=== PATIENT | male | born 1950 | race Caucasian/White ===

== ENCOUNTER → 2017-02-27 | Outpatient (CLI) | payer MEDICARE ==
--- NOTE | 2017-02-27 09:04 | KCIC ---
MRI of the lumbar spine without contrast 02/27/2017 CLINICAL HISTORY: Chronic low back pain for years which radiates down both legs, left greater than right. TECHNIQUE: Unenhanced T1-weighted and T2-weighted sagittal and axial and inversion recovery sagittal images of the lumbar spine were obtained. FINDINGS: Minimal S-shaped curvature of the thoracolumbar spine is seen. Degenerative signal changes are seen involving all of the disks of the lumbar spine. Degenerative signal changes are seen within the marrow surrounding these discs. Loss of height of the L5-S1 disc is noted. The conus medullaris is normal in morphology, position, and signal characteristics. A 2.6 cm rounded high signal intensity lesion is seen involving the lower pole of the left kidney on the T2-weighted images. This likely represents a cyst. The L1-2 disc space is within normal limits. At the L2-3 disc space there is a minimal generalized disc bulge. Degenerative changes are seen involving the facet joints bilaterally. These findings do not result in significant central spinal canal or neural foraminal stenosis. At the L3-4 disc space there is a mild generalized disc bulge. Superimposed on this disc bulge is a right paracentral focal disc protrusion. This measures 3 mm in AP diameter. Degenerative changes are seen involving the facet joints bilaterally. There is mild to moderate ligamentum flavum hypertrophy bilaterally. These findings when combine result in mild central spinal canal stenosis. No neural foraminal stenosis is seen. At the L4-5 disc space there is a mild generalized disc bulge. Degenerative changes are seen involving the facet joints bilaterally. There is moderate ligamentum hypertrophy bilaterally. There is a synovial cyst seen which projects anteriorly and medially from the right facet joint. This measures 9 mm in greatest diameter. These findings when combined result in mild to moderate right greater than left central spinal canal stenosis. No neural foraminal stenosis is seen. At the L5-S1 disc space there is a mild to moderate generalized disc bulge. This is eccentric to the left. Degenerative changes are seen involving the facet joints bilaterally. There is mild ligamentum flavum hypertrophy. These findings when combined do not result in significant central spinal canal stenosis. Moderate left neural foraminal stenosis is seen. The right neural foramen is patent. IMPRESSION: The changes of degenerative disc disease are seen throughout the lumbar spine. These findings result in mild central spinal canal stenosis at L3-4 and mild to moderate right greater than left central spinal canal stenosis at L4-5. Moderate left neural foraminal stenosis is seen at L5-S1. Electronically signed by: Corky Preciado MD (02/27/2017 9:00 AM) [email or web address]
== END | disposition home or self-care (01) ==
LOC: KCIC MRI 07:53
PROVIDERS: ATTEND Family Medicine
DX: M51.36 Other intervertebral disc degeneration, lumbar region (principal); M48.07 Spinal stenosis, lumbosacral region; M99.53 Intervertebral disc stenosis of neural canal of lumbar region
CPT/HCPCS: 72148

== ENCOUNTER → 2017-03-28 | Outpatient (CLI) | payer MEDICARE ==
--- NOTE | 2017-03-28 12:52 | RAD ---
Indication chronic low back pain. A lateral digital view of the lumbar spine was obtained as well as lateral flexion and extension views. There are some facet degenerative changes. There is mild disc space narrowing at L5-S1. Vertebral height and alignment are well maintained. There is very minimal anterolisthesis of L4 relative to L5 with flexion
== END | disposition home or self-care (01) ==
LOC: ONC 11:31
PROVIDERS: ATTEND Neurological Surgery
DX: M43.16 Spondylolisthesis, lumbar region (principal); G89.29 Other chronic pain
CPT/HCPCS: 72100

== ENCOUNTER → 2017-04-06 | Outpatient (CLI) | payer MEDICARE ==
[~2017-04-06] MED LIST: ALPR1TAB6 PO; ASPI-482 PO; CARV12.52 PO; CITA40TA5 PO; CRESTOR20 MG PO; DAPA10TA PO; DOCU-109 PO; FENO145T2 PO; HYDR-2762 PO; LISI1TAB7 PO; METF-620 PO; METH750T2 PO; SITA100T PO; TADA5TAB PO
[2017-04-06 11:41] LABS: BASO % 1 % (0-3); EOS % 2 % (0-3); HEMATOCRIT 44.3 % (39.0-53.0); HEMOGLOBIN 15.4 g/dL (13.0-17.5); LYMPH # 1.6 x10^3/uL (1.0-4.8); LYMPH % 32 % (24-48); MEAN CORPUSCULAR HEMOGLOBIN 31 pg (25-35); MEAN CORPUSCULAR HGB CONC 35 g/dL (31-37); MEAN CORPUSCULAR VOLUME 89 fL (79-100); MONO % 10 % (0-9); NEUT % 56 % (31-73); PLATELET COUNT 213 x10^3/uL (140-400); RED BLOOD COUNT 4.95 x10^6/uL (4.30-5.70); RED CELL DISTRIBUTION WIDTH 13.4 % (11.5-14.5); WHITE BLOOD COUNT 5.1 x10^3/uL (4.0-11.0)
[2017-04-06 13:15] LABS: ALBUMIN 3.9 g/dL (3.4-5.0); ALBUMIN/GLOBULIN RATIO 1.3 (1.0-1.7); CALCIUM 9.1 mg/dL (8.5-10.1); CREATININE 0.7 mg/dL (0.7-1.3); GFR 112.8; POTASSIUM 3.9 mmol/L (3.5-5.1); TOTAL BILIRUBIN 0.6 mg/dL (0.2-1.0)
== END | disposition home or self-care (01) ==
LOC: SURGPAT 10:24
PROVIDERS: ATTEND Neurological Surgery
DX: M48.06 Spinal stenosis, lumbar region (principal); M54.16 Radiculopathy, lumbar region; M71.38 Other bursal cyst, other site
CPT/HCPCS: 36415; 80053; 83036; 85025; 87641

== ENCOUNTER → 2018-11-08 | Outpatient (CLI) | payer MEDICARE ==
[2017-04-14 11:18] VITALS: BP 142/72
[~2018-11-08] MED LIST changes: +CARV12.511 PO; -CARV12.52 PO; +CARV6.25 PO; -FENO145T2 PO; +FENO145T30 PO; -HYDR-2762 PO; +HYDR-2765 PO; -METF-620 PO; +METF10007 PO; +SIMV10TA PO; +TERB250T11 PO
--- NOTE | 2018-11-08 10:55 | KCIC ---
MRI of the lumbar spine without contrast 11/08/2018 CLINICAL HISTORY: Low back pain which radiates down the left leg. History of previous lumbar spine surgery. TECHNIQUE: Unenhanced T1-weighted and T2-weighted sagittal and axial and inversion recovery sagittal images of the lumbar spine were obtained. FINDINGS: Comparison is made to radiographs of lumbar spine dated 03/28/2017. Additional comparison is made to an MRI of the lumbar spine dated 02/27/2017. Minimal S-shaped curvature of the thoracolumbar spine is seen. Degenerative signal changes are seen involving the L2-3, L3-4, L4-5 and L5-S1 discs. Loss of height of the L5-S1 disc is noted. Degenerative signal changes are seen within the marrow surrounding these discs. The conus medullaris is normal morphology, position, and signal characteristics. High signal intensity rounded lesions are seen involving the lower pole of the left kidney on the T2-weighted images which measure 6 mm 3.1 cm in size. They may represent cysts. At the L1-2 and L2-3 disc spaces there are minimal to mild generalized disc bulges. Degenerative changes are seen involving the facet joints bilaterally. There is mild ligamentum flavum hypertrophy bilaterally. These findings when combined do not result in significant central spinal canal or neural foraminal stenosis. At the L3-4 disc space there is a mild generalized disc bulge. Degenerative changes are seen involving the facet joints bilaterally. There are small facet joint effusions bilaterally. There is moderate ligamentum flavum hypertrophy bilaterally. There is prominence of posterior epidural fat. Superimposed on the disc bulge is a right paracentral/lateral focal disc protrusion. This measures 5 mm in AP diameter. These findings when combined result in mild central spinal canal stenosis. No neural foraminal stenosis is seen. At the L4-5 disc space, the patient is post left hemilaminotomy. There is a mild generalized disc bulge. Degenerative changes are seen involving the facet joints bilaterally. Mild right ligamentum flavum hypertrophy is seen. There is a small left facet joint effusion. These findings when combined do not result in significant central spinal canal stenosis. Mild right neural foraminal stenosis is seen. The left neural foramen is patent. At the L5-S1 disc space there is a mild to moderate generalized disc bulge. This is eccentric to the left. Degenerative changes are seen involving the facet joints bilaterally. These findings when combined do not result in significant central spinal canal stenosis. Moderate left neural foraminal stenosis is seen. The right neural foramen is patent. IMPRESSION: 1. Post left hemilaminotomy at L4-5. 2. The changes of degenerative disc disease are seen involving the lumbar spine. These findings result in mild central spinal canal stenosis at L3-4. Mild right neural foraminal stenosis is seen at L4-5. Moderate left neural foraminal stenosis is seen at L5-S1. Electronically signed by: Corky Preciado MD (11/08/2018 10:52 AM) [email or web address]
== END | disposition home or self-care (01) ==
LOC: KCIC MRI 09:14
PROVIDERS: ATTEND Nurse Practitioner
DX: M51.36 Other intervertebral disc degeneration, lumbar region (principal); M48.07 Spinal stenosis, lumbosacral region; M47.817 Spondylosis without myelopathy or radiculopathy, lumbosacral region; M51.27 Other intervertebral disc displacement, lumbosacral region; M25.48 Effusion, other site; N28.89 Other specified disorders of kidney and ureter
CPT/HCPCS: 72148

== ENCOUNTER → 2018-12-05 | Outpatient (CLI) | payer MEDICARE ==
[2017-04-14 11:18] VITALS: BP 142/72
[~2018-12-05] MED LIST changes: +IOHEXOL 180 MG/ML 10 ML VIAL. ONE; +methylPREDNISolone ACETATE 40 MG/ML VIAL. ONE; +methylPREDNISolone ACETATE 80 MG/ML VIAL. ONE
--- NOTE | 2018-12-06 06:46 | PAIN ---
DATE OF SERVICE: 12/05/2018 CHIEF COMPLAINT: Low back and left lower extremity pain. HISTORY OF PRESENT ILLNESS: This is a 68-year-old male who presents with history of pain since 08/2018 when he fell on some ice while he was walking and fell on his left hip and back. The patient reports that since that time, he has had pain down the left lower extremity, mostly in the posterior gluteus, posterior thigh, lateral thigh, anterior thigh, posterior calf posterior foot into the sole of the foot as well as all the toes with numbness and tingling. The patient reports it is becoming more constant over the past month or so, increasing with intensity, worse with walking, standing, change in positions causes significant fatigability and weakness in the left leg when he is ambulating. The patient reports it awakens him from sleep about 2-3 times a night, does not affect his bowel or bladder control, but does affect his ability to walk significantly. So far, he is not using any assistive devices to ambulate, however. The patient has had chiropractic treatment and some physical therapy in the past. Also, was noted to be status post L4-L5 laminectomy with decompression in 2016 with very good results and no pain since that time until the fall on the ice and it was in his left leg prior when he had a surgery. The patient reports the pain is constant, numbness and tingling, radiating, aching in the low back, shooting in the leg, dull and sharp alternating. The patient rates his disability rating from 0 to 10, 10 being the worst, as an 8 with family and home responsibilities and occupation, 10 with recreation, 6 with social activity, 3 with sexual behavior, 5 with self-care and 6 with life support activities, especially sleeping. The patient did have an MRI scan of lumbar spine showing previous post-hemilaminectomy at L4-L5 with degenerative disk disease and moderate left neural foraminal stenosis at L5-S1 with moderate generalized disk bulge eccentric to the left side. The patient reports no complete loss of function but again significant fatigability and no symptoms on the right side. PAST MEDICAL HISTORY: Significant for hearing loss, type 2 diabetes, hypertension, sleep apnea, arthritis, shingles. PREVIOUS SURGERIES: Include lumbar decompression in 2017 and the left hand surgery in the past. CURRENT MEDICATIONS: Include gabapentin, Tylenol, hydrocodone, all of which decreased the pain to a moderate extent, but not greater than that. Other medications include alprazolam, carvedilol, citalopram, rosuvastatin, Januvia, Farxiga, lisinopril, metformin, fenofibrate, Cialis, Tylenol. ALLERGIES: The patient has no known drug allergies. FAMILY HISTORY: Significant for no major medical problems or conditions he is aware of. SOCIAL HISTORY: The patient does not smoke, use any illegal, illicit or recreational drugs. He is and lives with his spouse, has one child, living at home, lives locally in [place], [place]. REVIEW OF SYSTEMS: Positive for those items mentioned in history of present illness. All systems reviewed and otherwise negative. It is complete, full and well documented on the patient's chart. PHYSICAL EXAMINATION: VITAL SIGNS: The patient's blood pressure is 147/71, pulse 82, respirations 18, temperature is 98.6 degrees Fahrenheit, height is 6 feet, weight is 236 pounds. GENERAL: The patient is awake, alert, oriented, appropriate, very pleasant demeanor. HEENT: Head shows normocephalic, atraumatic. Extraocular movements intact and symmetrical. Oral cavity: Mucous membranes moist and pink. Dentition is intact. NECK: Shows anterior throat supple without palpable lymphadenopathy noted. Swallow reflex is symmetrical. CHEST: Shows normal on inspection. Breath sounds are clear to auscultation bilaterally. HEART: Shows S1, S2 clear. No murmurs auscultated. ABDOMEN: Soft, nontender, nondistended. No palpable organomegaly is noted. No rebound or guarding demonstrated. BACK: Shows spine grossly in the midline, normal appearing cervical lordotic curvature, thoracic kyphotic curvature and lumbar lordotic curvature. Lumbar paraspinous musculature shows symmetrical on inspection, with palpation shows some moderate tenderness diffusely in the middle and lower distribution of paraspinous muscles, but only diffusely. Upper muscles are not tender. The patient shows good rotational motion of lumbar spine, both laterally greater than 10 degrees right and left as well as extension greater than 10 degrees, forward flexion 45 degrees without significant pain reported. No tenderness over the spinous processes, sacrum or sacroiliac regions. EXTREMITIES: The patient's lower extremities show deep tendon reflexes at 1+ in the patellar and tendo calcaneus tendons are equal and symmetrical. Motor exam shows dorsiflexion and extension at approximately 4 on a scale of 5 on the left and 5/5 on the right, quadriceps and hamstring flexion likewise 5/5, right and 4/5, left. Peripheral pulses are 1+ posterior tibia. No peripheral edema is noted. Straight leg raise is positive on the left at about 35 degrees with right side is negative. Gaenslen's and Johny's maneuvers are negative bilaterally. The patient's lower extremities are warm and dry to touch, equal in color and appearance. The patient's skin shows warm and dry, good turgor. No edema, no sores, rashes or bruising throughout. The patient is able to stand, stand on his toes without difficulty or loss of balance, walking with a normal appearing gait for short distance in the office today, not using any assistive devices to ambulate. IMPRESSION: 1. This is the 68-year-old male with approximate 3-month history of pain, low back, left lower extremity in radicular fashion after a fall in August. 2. MRI scan of lumbar spine as noted. 3. Type 2 diabetes. 4. Hypertension. 5. Arthritis. PLAN: Options were discussed with the patient including conservative medical management, physical therapy, interventional techniques and he would like to pursue interventional techniques. We discussed a lumbar epidural steroid injection using description as well as anatomical models to describe the procedure. Risks were then discussed including, but not limited to bleeding, infection, possibility of epidural hematoma and subsequent neurological compromise, dural puncture, headaches, spinal cord and/or nerve damage, side effects of steroid medication and poor results regarding pain control. The patient understands and wished to proceed. The patient will return to clinic in approximately 2 weeks for followup. She was counseled as to return appointment, activity level and side effects to be aware of. DIAGNOSES: Lumbar radiculopathy with lumbar degenerative disk disease and lumbar spinal stenosis. PROCEDURE: Lumbar epidural steroid injection, translaminar approach L5-S1 level using C-arm fluoroscopic guidance under sterile prep and drape using local anesthetic. MEDICATION INJECTED: A total of 120 mg Depo-Medrol plus 10 mL of preservative-free normal saline and 2 mL of Isovue for contrast. CONDITION ON DISCHARGE: Stable. The patient tolerated procedure well, had no complications. CHUCK FRANKLIN MD DR: VICTORIA/jeff JOB#: [id number] / [id number]
== END | disposition home or self-care (01) ==
LOC: PNCL 13:09
PROVIDERS: ATTEND Anesthesiology
DX: M51.16 Intervertebral disc disorders with radiculopathy, lumbar region (principal); M48.061 Spinal stenosis, lumbar region without neurogenic claudication; I10 Essential (primary) hypertension; E11.9 Type 2 diabetes mellitus without complications; M19.90 Unspecified osteoarthritis, unspecified site; H91.90 Unspecified hearing loss, unspecified ear; G47.30 Sleep apnea, unspecified; Z86.19 Personal history of other infectious and parasitic diseases; Z98.890 Other specified postprocedural states; Z79.899 Other long term (current) drug therapy; Z79.84 Long term (current) use of oral hypoglycemic drugs
CPT/HCPCS: 62323; J1030; J1040; Q9965

== ENCOUNTER → 2018-12-19 | Outpatient (CLI) | payer MEDICARE ==
[2017-04-14 11:18] VITALS: BP 142/72
--- NOTE | 2018-12-20 03:10 | PAIN ---
DATE OF SERVICE: 12/19/2018 DIAGNOSIS: Lumbar radiculopathy with lumbar degenerative disk disease and lumbar spinal stenosis with post lumbar laminectomy syndrome. HISTORY OF PRESENT ILLNESS: The patient is a 68-year-old male who returns for followup status post lumbar epidural steroid injection x 1. The patient reports about 20% improvement overall, initially was doing much better, but then the pain began to return in his left leg after about a week. The patient reports it is increasing with standing, walking, changing positions, standing from a sitting position. Reports it is 6 on a scale 10 at its worst over the past week, 4 on average, 2 at its least and is 4 today. The patient reports it is tingling, cramping, radiating and had some spasms in the left calf as well as. There is tightness over the left anterior foot. The patient reports it is better with sitting or lying down, does not awaken him from sleep at night. The patient reports no new motor or sensory deficits. Initially, the first week he increased his distance walking, doing household activity and travelling with greater ease and comfort, but now the pain is returning. PHYSICAL EXAMINATION: VITAL SIGNS: The patient's blood pressure is 154/81, pulse 78, respirations 18, temperature is 98.1 degrees Fahrenheit, height is 6 feet, weighs 234 pounds. GENERAL: The patient is awake, alert, oriented, appropriate, very pleasant demeanor. The patient is accompanied by his spouse. HEENT: Normocephalic, atraumatic. Extraocular movements are intact, symmetrical. Oral cavity: Mucous membranes moist and pink. Dentition is intact. NECK: Shows anterior throat supple without palpable lymphadenopathy noted. Swallow reflex symmetrical. CHEST: Shows normal with inspection. Breath sounds clear to auscultation bilaterally. HEART: Shows S1, S2 clear. No murmurs auscultated. ABDOMEN: Soft, nontender, nondistended. No palpable organomegaly is noted. No rebound or guarding demonstrated. BACK: Shows spine grossly in the midline. Normal-appearing thoracic kyphosis and lumbar lordotic curvature. Lumbar paraspinous muscle shows symmetrical on inspection, Well-healed surgical scar is again noted. Lumbar paraspinous muscles are moderately tender with palpation bilaterally, only in the low lumbar distribution, but without radiation. The patient has good rotational motion of lumbar spine, both laterally as well as extension and flexion without difficulty. EXTREMITIES: Lower extremities show deep tendon reflexes 1+ in the patellar and tendo calcaneus tendons. Motor exam is approximately 4 on a scale of 5 on the left with dorsiflexion and extension, 5/5 on the right. Peripheral pulses are 1+ posterior tibial. No peripheral edema is noted bilaterally. Options were discussed with the patient. The patient's old chart was reviewed as was his current medication regimen updated. Current review of systems updated today as well. We will proceed with a second in the series of lumbar epidural steroid injection today with fluoroscopic guidance. Risks were again discussed including, but not limited to bleeding, infection, possibility of epidural hematoma and subsequent neurological compromise, dural puncture, headaches, spinal cord and/or nerve damage, side effects of steroid medication and poor results regarding pain control. The patient understands and wished to proceed. The patient will return to clinic in approximately 2 weeks for followup, was counseled as to return appointment, activity level and side effects to be aware of. DIAGNOSIS: Lumbar radiculopathy with lumbar degenerative disk disease, lumbar spinal stenosis and post-lumbar laminectomy syndrome. PROCEDURE: Lumbar epidural steroid injection, translaminar approach at L5-S1 level using C-arm fluoroscopic guidance under sterile prep and drape using local anesthetic. MEDICATION INJECTED: A total of 120 mg Depo-Medrol plus 10 mL of preservative-free normal saline and 2 mL of Isovue for contrast. CONDITION AT DISCHARGE: Stable. The patient tolerated the procedure well, had no complications. CHUCK FRANKLIN MD DR: VICTORIA/jeff JOB#: [id number] / [id number]
== END | disposition home or self-care (01) ==
LOC: PNCL 10:35
PROVIDERS: ATTEND Anesthesiology
DX: M51.16 Intervertebral disc disorders with radiculopathy, lumbar region (principal); M48.061 Spinal stenosis, lumbar region without neurogenic claudication; M96.1 Postlaminectomy syndrome, not elsewhere classified
CPT/HCPCS: 62323; J1030; J1040; Q9965

== ENCOUNTER → 2019-03-25 | Outpatient (CLI) | payer SELFPAY ==
[2017-04-14 11:18] VITALS: BP 142/72
[~2019-03-25] MED LIST changes: -IOHEXOL 180 MG/ML 10 ML VIAL. ONE; +LISI1TAB20 PO; -LISI1TAB7 PO; -methylPREDNISolone ACETATE 40 MG/ML VIAL. ONE; -methylPREDNISolone ACETATE 80 MG/ML VIAL. ONE
== END | disposition home or self-care (01) ==
LOC: LAB 08:45
DX: Z31.448 Encounter for other genetic testing of male for procreative management (principal)
CPT/HCPCS: 36415

== ENCOUNTER → 2019-07-29 | Outpatient (CLI) | payer MEDICARE ==
[2017-04-14 11:18] VITALS: BP 142/72
[~2019-07-29] MED LIST changes: +CLOP75TA PO; +GADOTERATE 7.5 MMOL/15ML VIAL. IVP ONE
--- NOTE | 2019-07-29 15:35 | KCIC ---
LUMBAR SPINE WO/W CONTRAST History: Lumbar spine pain. History of surgery. Left leg weakness. Technique: Multiplanar, multi sequential MR imaging was performed of the lumbar spine with and without contrast. Comparison: November 08, 2018 Findings: Normal vertebral body height and alignment. No fracture. Conus terminates at the normal location. No evidence of nerve root clumping. No pathologic enhancement. Right inferior renal cyst. L1-L2: No canal or neuroforaminal narrowing. L2-L3: Small posterior disc bulge. Right foraminal annular fissure. Mild facet arthropathy. No canal narrowing. No neuroforaminal narrowing. L3-L4: Broad-based posterior disc bulge with central annular fissure. Mild facet arthropathy. Mild canal narrowing. Mild to moderate left and mild right neuroforaminal narrowing. L4-L5: Small posterior disc bulge. Posterior laminectomy. Moderate to advanced facet arthropathy. Left facet joint effusion. No canal narrowing. Mild bilateral neural foraminal narrowing. L5-S1: Broad-based posterior disc bulge with superimposed central disc protrusion. Postoperative changes left laminectomy. Facet arthropathy. No canal narrowing. Mild subarticular recess narrowing, left greater than right. Moderate to severe left neuroforaminal narrowing. Mild right neuroforaminal narrowing. Compared the prior examination the degenerative findings are unchanged. Impression: 1. Moderate multilevel lumbar spondylosis most prominent L3-L4 contributing to mild canal narrowing, unchanged. 2. Multilevel neural foraminal narrowing most prominent left L5-S1, unchanged. Electronically signed by: Florentin Hooper DO (07/29/2019 3:32 PM) [email or web address]
== END | disposition home or self-care (01) ==
LOC: KCIC MRI 12:16
PROVIDERS: ATTEND Neurological Surgery
DX: M51.17 Intervertebral disc disorders with radiculopathy, lumbosacral region (principal); M47.26 Other spondylosis with radiculopathy, lumbar region; I10 Essential (primary) hypertension; E11.9 Type 2 diabetes mellitus without complications; M51.16 Intervertebral disc disorders with radiculopathy, lumbar region; M12.88 Other specific arthropathies, not elsewhere classified, other specified site; M48.061 Spinal stenosis, lumbar region without neurogenic claudication; Z98.890 Other specified postprocedural states; Z95.0 Presence of cardiac pacemaker; Z79.01 Long term (current) use of anticoagulants
CPT/HCPCS: 72158; 82565; A9575

== ENCOUNTER → 2019-08-20 | Outpatient (CLI) | payer MEDICARE ==
[2017-04-14 11:18] VITALS: BP 142/72
[~2019-08-20] MED LIST changes: +FENO145T3 PO; -FENO145T30 PO; -GADOTERATE 7.5 MMOL/15ML VIAL. IVP ONE
--- NOTE | 2019-08-20 16:55 | RAD ---
EXAM: Lumbar spine, 3 views. HISTORY: Pain. COMPARISON: 07/29/2019 FINDINGS: Lateral neutral, flexion and extension views of the lumbar spine are obtained. There is degenerative endplate remodeling with disc space narrowing and facet arthropathy at L5-S1. There is additional endplate remodeling at L3-L4, and to a lesser extent, L4-L5. There is grade 1 anterolisthesis of L4 and L5 with flexion, measuring approximately 8 mm. This reduces to 3 mm with extension. IMPRESSION: 1. Degenerative change involving the mid lower lumbar spine, primarily at the lumbosacral junction. 2. Grade 1 anterolisthesis of L4 on L5 during flexion. This decreases with extension is not seen in the neutral position. Electronically signed by: Briana Gayle MD (08/20/2019 4:52 PM) [email or web address]
== END | disposition home or self-care (01) ==
LOC: RAD 11:02
PROVIDERS: ATTEND Neurological Surgery
DX: M47.817 Spondylosis without myelopathy or radiculopathy, lumbosacral region (principal); M48.07 Spinal stenosis, lumbosacral region; M43.17 Spondylolisthesis, lumbosacral region
CPT/HCPCS: 72020; 72120

== ENCOUNTER → 2020-01-30 | Outpatient (CLI) | payer MEDICARE ==
[2017-04-14 11:18] VITALS: BP 142/72
[~2020-01-30] MED LIST changes: +GABA-689 PO; +OMEG1CAP27 PO; +OXYC1TAB15 PO; -TERB250T11 PO; +TERB250T84 PO
[2020-01-30 11:42] LABS: BASO % 1 % (0-3); EOS # 0.1 x10^3/uL (0.0-0.7); EOS % 2 % (0-3); HEMATOCRIT 45.8 % (39.0-53.0); HEMOGLOBIN 15.8 g/dL (13.0-17.5); LYMPH # 1.4 x10^3/uL (1.0-4.8); LYMPH % 32 % (24-48); MEAN CORPUSCULAR HEMOGLOBIN 31 pg (25-35); MEAN CORPUSCULAR HGB CONC 35 g/dL (31-37); MEAN CORPUSCULAR VOLUME 90 fL (79-100); MONO # 0.4 x10^3/uL (0.0-1.1); MONO % 10 % (0-9); NEUT # 2.5 x10^3/uL (1.8-7.7); NEUT % 55 % (31-73); PLATELET COUNT 203 x10^3/uL (140-400); RED BLOOD COUNT 5.11 x10^6/uL (4.30-5.70); RED CELL DISTRIBUTION WIDTH 13.3 % (11.5-14.5); WHITE BLOOD COUNT 4.5 x10^3/uL (4.0-11.0)
[2020-01-30 11:52] LABS: PROTHROMBIN TIME PATIENT 12.3 SEC (11.7-14.0)
[2020-01-30 12:04] LABS: ALBUMIN 3.8 g/dL (3.4-5.0); ALBUMIN/GLOBULIN RATIO 1.3 (1.0-1.7); CALCIUM 8.7 mg/dL (8.5-10.1); CREATININE 0.7 mg/dL (0.7-1.3); GFR 111.8; POTASSIUM 4.2 mmol/L (3.5-5.1); TOTAL BILIRUBIN 0.5 mg/dL (0.2-1.0); TOTAL PROTEIN 6.7 g/dL (6.4-8.2)
[2020-01-31 01:08] LABS: HEMOGLOBIN A1C 7.9 % (4.8-5.6)
== END | disposition home or self-care (01) ==
LOC: SURGPAT 10:29
PROVIDERS: ATTEND Neurological Surgery
DX: Z01.818 Encounter for other preprocedural examination (principal); Z11.59 Encounter for screening for other viral diseases; M43.16 Spondylolisthesis, lumbar region; M54.16 Radiculopathy, lumbar region; M48.062 Spinal stenosis, lumbar region with neurogenic claudication; Z79.899 Other long term (current) drug therapy
CPT/HCPCS: 36415; 80053; 83036; 85025; 85610; 85730; 87641; U0003

== ENCOUNTER → 2020-04-24 | Outpatient (CLI) | payer MEDICARE ==
[2020-02-04 11:05] VITALS: BP 137/63
--- NOTE | 2020-04-24 16:21 | KCIC ---
LUMBAR SPINE 2-3V 04/24/2020 12:00 AM INDICATION: Status post fusion COMPARISON: CT lumbar spine 02/03/2020 TECHNIQUE: 2 views of the lumbar spine are provided. FINDINGS/ IMPRESSION: 1. Posterior fusion is identified at L4-L5 with bilateral pedicle screws and dual rods. Next on 2. Minimal retrolisthesis of L3 on L4. Grade 1 anterolisthesis of L4 on L5. 3. Moderate facet arthropathy is noted in the lower lumbar spine. No acute fractures identified. No evidence for hardware failure. Sacroiliac joints are well aligned. Electronically signed by: Rochelle Mcguire MD (04/24/2020 4:18 PM) [facility]
== END | disposition home or self-care (01) ==
LOC: KCIC 12:48
PROVIDERS: ATTEND Neurological Surgery
DX: M43.16 Spondylolisthesis, lumbar region (principal); M46.96 Unspecified inflammatory spondylopathy, lumbar region; Z98.1 Arthrodesis status
CPT/HCPCS: 72100